=== PATIENT | female | born 1995 | race Caucasian/White ===

== ENCOUNTER 2021-10-03 04:51 | Emergency (ER) | payer BC, SELFPAY ==
--- NOTE | ~2021-10-03 | CT_ITS ---
EXAMINATION: CTA chest PE protocol DATE: 10/03/2021 07:28 INDICATION: Chest pain. TECHNIQUE: Computed tomography angiography (CTA) of the chest was performed with 100 mL Omnipaque-350 intravenous contrast timed to evaluate the pulmonary arteries. Coronal maximum intensity projection 3D-reconstructions were created by the technologist. Automated exposure control and iterative reconst ruction technique were employed. The dose-length product was 340.96 mGy-cm. COMPARISON: Chest 2 views 10/03/2021 FINDINGS: The lungs demonstrate mild atelectasis. A calcified left lung nodule and calcified left hil ar lymph nodes are consistent with old granulomatous disease. No pleural effusion. The heart size is normal. No pericardial effusion. There is no pulmonary embolus. There are changes of cholecystectomy. The bones are unremarkable. IMPRESSION: 1. No pulmonary embolus. Reviewed, dictated and finalized at location A. CIPAL SYSTEMS ARCHITECT IMPRESSION: 1. No pulmonary embolus.
--- NOTE | ~2021-10-03 | XR_ITS ---
EXAMINATION: XR chest 2V DATE: 10/03/2021 05:50 INDICATION: Left chest pain. TECHNIQUE: Frontal and lateral views of the chest were obtained. COMPARISON: None. FINDINGS: The chest demonstrates clear lungs without pneumonia, pleural effusion, or pneumothorax. Th e heart size is normal. Surgical clips in the right upper quadrant are likely from cholecystectomy. IMPRESSION: 1. No acute cardiopulmonary disease. Reviewed, dictated and finalized at location A. UTER TERMINAL OPERATOR
[2021-10-03 04:49] VITALS: PULSE 89; RESP 16; TEMP 36.7; O2SAT 97
--- NOTE | 2021-10-03 04:50 | ED.CHESTPAIN ---
HPI - Chest Pain General Chief Complaint: Chest Pain Stated Complaint: cp, left chest breast shoulder stabbing sharp pain Source: patient and EMS Mode of arrival: EMS Limitations: no limitations History of Present Illness HPI narrative: Patient is a 25 yo female with a history of anxiety and depression who presents via EMS for evaluation of left sided chest pain. Pain originates in left breast, and radiates into left arm/elbow. Pt denies any numbness or tingling in her extremities. No jaw pain. No shoulder pain. No ripping or tearing sensation to the flanks. Pt states initially she did have tingling in the LUE. Pt reports nausea without emesis. Pain is exacerbated with inspiration. Pt was seen at [facility] and given valium and toradol with some improvement initially. Pt is on hormonal OCPs. Denies history of coagulopathy. Pt takes Effexor for anxiety and states that this seems different than the chest pain she has with panic attacks. No recent medication changes. Patient denies current anxiety or triggers. Related Data Allergies Allergy/AdvReac Type Severity Reaction Status Date / Time prochlorperazine Allergy Unknown Verified 05/11/17 12:10 Review of Systems Review of Systems: CONSTITUTIONAL: Denies fever, chills, or sweats. EYES: Denies visual changes, redness, or discharge. ENT: Denies rhinorrhea, congestion, sore throat, or otalgia. CARDIOVASCULAR: Patient reports chest pain, denies palpitations or edema RESPIRATORY: Denies cough or dyspnea. GASTROINTESTINAL: Denies abdominal pain, nausea, vomiting, or diarrhea. GENITOURINARY: Denies dysuria or hematuria. SKIN: Denies rash or itching. MUSCULOSKELETAL: Denies back pain, joint pain, or myalgia. NEUROLOGIC: Denies headache, numbness, or weakness. PSYCHIATRIC: Patient reports anxiety and depression [facility] Social History Social History (Updated 10/03/21 @ 05:12 by Arelis Weiss MD) Smoking status: Current every day smoker Tobacco type: e-cigarettes/vaping Alcohol intake: never Substance use: never Gender identity (if verbalized by the patient): Female Exam Narrative: GENERAL: Awake, alert, conversant HEAD: Normocephalic, atraumatic. EYES: PERRLA and EOMI. ENT: Nares clear, no rhinorrhea or epistaxis. Mucous membranes moist. NECK: Supple. CHEST: No respiratory distress, breathing even and non labored, chest wall tenderness on exam HEART: Regular rate, sinus rhythm ABDOMEN:Non distended, non tender EXTREMITIES: Normal range of motion. No edema. SKIN: Warm, dry, no rash. NEURO:No focal deficits. Alert and oriented x3 Course Vital Signs Vital signs: Vital Signs Temperature 36.7 C 10/03/21 04:49 Pulse Rate 89 10/03/21 04:49 Respiratory Rate 16 10/03/21 04:49 Pulse Oximetry 97 10/03/21 04:49 Temperature 36.7 C 10/03/21 04:49 Pulse Rate 102 H 10/03/21 04:55 Respiratory Rate 16 10/03/21 04:49 Pulse Oximetry 97 10/03/21 04:49 MDM - Chest Pain MDM Narrative Medical decision making narrative: Patient presenting for evaluation of chest pain. Pain has been chronic with previous evaluation at another hospital. Patient presented via EMS for chronic pain. At the time of assessment she is quite tearful. Patient's EKG and labs are without significant high risk changes. Cardiac risk factors reviewed. Patient is felt low risk for ACS. Troponin is not elevated. Given she is on hormonal OCPs, did obtain D-dimer which is negative. CTA is not indicated. Given pain is reproducible seems most consistent with costochondritis. Pain was not sudden or maximal or onset without tearing or ripping quality. No other signs or symptoms to suggest aortic dissection. No pneumonia seen on evaluation today. Patient is felt to be a reasonable candidate for continued evaluation as an outpatient. Patient discharged home in stable condition. Differential Diagnosis Differential diagnosis: Likely pneumothorax, stable angina, unstable angina pectoris,
--- NOTE | 2021-10-03 04:51 | ECG_ITS ---
Measurements Intervals [place] Rate: 81 P: 26 AL: 127 QRS: 21 QRSD: 88 T: 9 QT: 344 QTc: 401 Interpretive Statements SINUS RHYTHM ATRIAL PREMATURE COMPLEX BASELINE ARTIFACT- I, II, III, V1 BORDERLINE ECG Electronically Signed On 10-03-2021 6:49:42 STRUCTURAL DESIGN ENGINEER by Isidoro Reid D.O.
[2021-10-03 04:55] VITALS: PULSE 102
[2021-10-03 05:18] LABS: Basophils Absolute Auto 0.1 K/mm3 (0.0-0.1); Basophils Percent Auto 0.8 % (0.2-1.2); Eosinophils Absolute Auto 0.3 K/mm3 (0-0.3); Eosinophils Percent Auto 3.2 % (0-4.4); Hematocrit 39.7 % (37.0-47.0); Hemoglobin 13.4 g/dL (12.0-15.0); Immature Granulocyte Absolute 0.04 K/mm3 (0.00-0.031); Immature Granulocyte Percent A 0.5 % (0-0.5); Lymphocytes Absolute Auto 2.89 K/mm3 (0.9-3.2); Lymphocytes Percent Auto 33.3 % (18.3-44.2); Mean Corpuscular HGB Conc 33.8 g/dl (32-36); Mean Corpuscular Hemoglobin 29.6 pg (26-34); Mean Corpuscular Volume 87.8 fl (80-100); Monocytes Absolute Auto 0.8 K/mm3 (0.1-0.6); Monocytes Percent Auto 9.1 % (2.6-8.5); Neutrophils Absolute Auto 4.6 K/mm3 (1.3-6.7); Neutrophils Percent Auto 53.1 % (45.5-73.1); Platelet Count Result 376 k/mm3 (150-375); Red Blood Count 4.52 M/mm3 (4.2-5.4); Red Cell Distribution Width 12.9 % (11.5-14.5); White Blood Count 8.7 K/mm3 (4.5-10.0)
[2021-10-03 05:31] LABS: Alanine Aminotransferase 55 U/L (4-35); Albumin Level 4.5 g/dL (3.5-5.1); Alkaline Phosphatase 64 U/L (38-126); Anion Gap 8 mmol/L (8-16); Aspartate Amino Transferase 52 U/L (14-36); Bilirubin,Total 0.3 mg/dL (0.2-1.3); Blood Urea Nitrogen 12 mg/dL (7-17); Calcium 9.4 mg/dL (8.4-10.2); Carbon Dioxide 24 mmol/L (22-30); Chloride 104 mmol/L (98-107); Estimated CRCL calculation 100 ml/min; Estimated Glomerular Filt Rate > 60; Glucose 106 mg/dL (65-110); Potassium 3.8 mmol/L (3.4-5.0); Sodium 136 mmol/L (137-145)
[2021-10-03 05:39] LABS: INR 0.9; NT Pro B Type Natriuretic Pept 32 pg/mL (5-100); Prothrombin Time 12.1 Seconds (11.1-14.7)
[2021-10-03 05:40] LABS: Partial Thromboplastin Time 28.6 SECONDS (22.3-36.8)
[2021-10-03 05:46] LABS: Troponin I < 0.012 ng/mL (0.000-0.034)
[2021-10-03 05:54] LABS: D Dimer 0.27 ug/mL (<0.48)
[2021-10-03] MEDS: LORazepam INJ (*CRX) 2 MG/ML VIAL 0.5 MG IM (05:58)
[2021-10-03] MEDS: MORPHINE SULFATE (*CRX) 4 MG/ML INJ IV PUSH (06:47)
[2021-10-03 08:12] VITALS: PULSE 99; RESP 16; O2SAT 99
== END 2021-10-03 08:12 | disposition home or self-care (01) ==
PROVIDERS: Emergency Medicine; Emergency Provider Emergency Medicine; PCP Physician Assistant
DX: M94.0 Chondrocostal junction syndrome [Tietze] (principal); F17.290 Nicotine dependence, other tobacco product, uncomplicated
CPT/HCPCS: 36415; 71046; 71275; 80053; 81025; 83880; 84484; 85025; 85380; 85610; 85730; 93005; 96372; 96374; 99284; J2060; J2270; Q9967

== ENCOUNTER 2023-08-13 01:51 | Emergency (ER) | payer BC, MEDICAID, SELFPAY ==
[2023-08-13 01:58] VITALS: BP 123/78; PULSE 99; RESP 24; TEMP 37.2; O2SAT 100
[2023-08-13 04:01] VITALS: BP 102/68; PULSE 101; RESP 14; O2SAT 100
[2023-08-13] MEDS: LIDOCAINE 5% PATCH 1 PATCH TRANSDERM (04:43)
[2023-08-13] MEDS: methocarbamoL 750 MG TABLET PO (04:44)
[2023-08-13] MEDS: ACETAMINOPHEN 500 MG TABLET 1000 MG PO (04:45)
[2023-08-13] MEDS: MORPHINE SULFATE INJ (*CRX) 10 MG/ML AMP 6 MG IM (06:06)
[2023-08-13 06:07] VITALS: BP 119/77; PULSE 84; RESP 14; O2SAT 100
--- NOTE | 2023-08-13 08:47 | ED.EXTPRO ---
HPI - Extremity Problem General Chief complaint: Extremity Problem,Nontraumatic Stated complaint: shoulder pain Time Seen by Provider: 08/13/23 04:04 Source: patient and old records reviewed (DC isntructions from OSH) Limitations: no limitations History of Present Illness HPI Narrative: This is a 27 yo F who presents with complaint of left posterior shoulder/upper back pain. She is 24 weeks with MELY 12/02/23. Patient is R hand dominant. Of note, she presented earlier today to [place] for the same complaint and, due to elevated D-dimer, underwent a CT scan which was negative for any pathology including pulmonary embolus. Unable to see records from this encounter in EMR but patient has DC instructions with her. While there, medication given was fentanyl in addition to what she describes as a Pepcid/GI drink which didn't help. Patient expressses concern about taking medications given her and the fact that it took 2+ years to conceive fetus but she is in exquisite pain. Doesn't describe it as a stabbing but rather a sharp ache, worse with exhalation and movement. Pain has been occuring intermittently for 1 week. No paresthesias throughout the left shoulder/arm/forearm/wrist/hand. Works a desk job but otherwise no significant ROM or repetitive movements in her upper shoulder girdle or scapula/back. At home she notes she had 4 extra strength TYlenol at 3pm and has also been trialing heat, ice, and Nexium. Otherwise, she takes no other medications regularly. No feverss. PCP = EARRING MAKER Olimpia Bhardwaj in [facility]. OBGYN at [facility] at [facility]. Related Data Allergies Allergy/AdvReac Type Severity Reaction Status Date / Time prochlorperazine Allergy Unknown Other Verified 08/13/23 04:00 [facility] Social History Social History (Updated 10/03/21 @ 05:12 by Arelis Weiss MD) Smoking status: Current every day smoker Tobacco type: e-cigarettes/vaping Alcohol intake: never Substance use: never Gender identity (if verbalized by the patient): Female Exam Const: General: healthy appearing; No ill appearing Other: appears in acute distress, tearful HENMT: Head: normal to inspection Face/Nose/Sinus: Normal external nose present Face and sinus: normal facial exam Neck: Neck: normal visual inspection and no meningeal signs Chest: Chest palpation & inspection: normal inspection of the chest Resp: Effort & Inspection: tachypneic (mild) Cardio: Rate: regular rate Other: Strong radial pulse GI: Other: gravid Back/Spine/Pelvis: Other: C-spine non TTP and bony processes midline w/o stepoffs Skin: General skin exam: normal color Other: No wounds/rash/vesicles/lesions. No ecchymosis overlying upper back or left shoulder or left arm. No muscle spasms felt on palpation. No TTP at GH joint or AC joint or throughout shoulder girdle. TTP at left trapezius muscle but no asymmetry on palpation of right, no bulging. Neuro: General: patient oriented x3, moves all extremities and no meningeal signs Other: Sensation intact to gross touch throughout back, deltoid, and down left arm. Able to move entire hand. Extrem: General: normal to inspection, no clubbing, cyanosis or edema and no edema Other: 5/5 strength with SCM engagement and trapazius elevation (passive and active). 5/5 strenght with shoulder abduction bilaterally and elbow flexion/extension bilaterally. Psych: Mental Status: mental status grossly normal Affect: Anxious affect present Attitude: cooperative Course Vital Signs Vital signs: Vital Signs Temperature 98.9 F 08/13/23 01:58 Pulse Rate 99 08/13/23 01:58 Respiratory Rate 24 H 08/13/23 01:58 Blood Pressure 123/78 08/13/23 01:58 Pulse Oximetry 100 08/13/23 01:58 Temperature 98.9 F 08/13/23 01:58 Pulse Rate 93 08/13/23 08:57 Respiratory Rate 16 08/13/23 08:57 Blood Pressure 113/69 08/13/23 08:57 Pulse Oximetry 100 08/13/23 08:57
[2023-08-13 08:57] VITALS: BP 113/69; PULSE 93; RESP 16; O2SAT 100
== END 2023-08-13 08:59 | disposition home or self-care (01) ==
PROVIDERS: Emergency Provider Student in an Organized Health Care Education/Training Program
DX: O26.892 Other specified pregnancy related conditions, second trimester (principal); S46.812A Strain of other muscles, fascia and tendons at shoulder and upper arm level, left arm, initial encounter; Z3A.24 24 weeks gestation of pregnancy; X58.XXXA Exposure to other specified factors, initial encounter
CPT/HCPCS: 96372; 99283; A9270; J2270